=== PATIENT | female | born 1995 | race Hispanic/Latino ===

== ENCOUNTER 2019-05-01 10:47 | Emergency (ER) | payer OTHER ==
[2019-05-01] MEDS ORDERED: Metoclopramide HCl 10 MG/2 ML VIAL ONE (12:24)
[2019-05-01] MEDS ORDERED: diphenhydrAMINE 50 MG/ML VIAL ONE (12:24)
[2019-05-01 12:32] LABS: #Basophils 0.1 thou/uL (0.0-0.2); #Eosinphils 0.1 thou/uL (0.0-0.7); #Lymphocytes 2.3 thou/uL (1.20-3.40); #Monocytes 0.5 thou/uL (0.11-0.59); #Neutrophils 6.7 thou/uL (1.40-6.50); %Basophils 0.6 % (0.0-1.0); %Eosinophils 1.5 % (0.0-10.0); %Lymphocytes 23.5 % (21.0-51.0); %Neutrophils 69.4 % (42.0-75.0); Hemoglobin 13.6 g/dL (12.0-16.0); Mean Corpuscular Hemoglobin 31.9 pg (27.0-31.0); Mean Corpuscular Volume 99.7 fL (78.0-98.0); Mean Platelet Volume 9.4 fL (7.4-10.4); Platelet Count 331 thou/uL (130-400); Red Blood Cell (RBC) Count 4.25 mill/uL (4.20-5.40); White Blood Cell (WBC) Count 9.6 thou/uL (4.8-10.8)
[2019-05-01 12:34] LABS: BHCG - Serum Negative (NEGATIVE); Pregs Control Background? CLEAR/WHITE (CLR/WHITE); Pregs Control Bar Appear? YES (CONTROL BAR)
[2019-05-01 12:48] LABS: Anion Gap 14 mmol/L (10-20); BUN (Urea Nitrogen) 8 mg/dL (7.0-18.7); Calc. Creatinine Clearance 0 mL/min (70-130); Calcium 9.6 mg/dL (7.8-10.44); Carbon Dioxide 25 mmol/L (22-29); Chloride 105 mmol/L (98-107); Estimated GFR-MDRD Greater than 90; Glucose 93 mg/dL (70-105); Potassium 3.5 mmol/L (3.5-5.1); Sodium 140 mmol/L (136-145)
--- NOTE | 2019-05-01 14:03 | CT ---
EXAM: CT brain without contrast HISTORY: Headache COMPARISON: 11/25/2016 TECHNIQUE: Multiple contiguous axial images were obtained and a CT of the brain without contrast. FINDINGS: The brain is normal in morphology and attenuation without focal lesions or confluent areas of infarction. There is no evidence of hydrocephalus, intracranial hemorrhage, or extra-axial fluid collection. The calvarium and overlying soft tissues are unremarkable. The visualized paranasal sinuses and masto id air cells are well aerated. IMPRESSION: No evidence of acute intracranial abnormality
[2019-05-01] MEDS ORDERED: Ketorolac Tromethamine 30 MG/ML VIAL ONE (14:14)
[2019-05-01] MEDS ORDERED: Acetaminophen 500 MG TAB ONE (14:14)
== END 2019-05-01 15:05 | disposition home or self-care (01) ==
LOC: ERS 10:47
DX: R11.2 Nausea with vomiting, unspecified (principal); I12.0 Hypertensive chronic kidney disease with stage 5 chronic kidney disease or end stage renal disease; E11.22 Type 2 diabetes mellitus with diabetic chronic kidney disease; N18.6 End stage renal disease; E87.6 Hypokalemia; E78.5 Hyperlipidemia, unspecified; J45.909 Unspecified asthma, uncomplicated; Z99.2 Dependence on renal dialysis
CPT/HCPCS: 70450; 80048; 84703; 85025; 96365; 96375; J1200; J1885; J2765

== ENCOUNTER 2020-01-22 10:52 | Outpatient (CLI) | payer OTHER ==
--- NOTE | 2020-01-22 11:33 | ULT ---
EXAM: OB ultrasound COMPARISON: None HISTORY: female. Evaluate size, dates, and anatomy. TECHNIQUE: Multiplanar grayscale and color Doppler transabdominal sonographic images are obtained. FINDINGS: There is a single intrauterine gestation in transverse lie with the head to the maternal ri ght. Cardiac Doppler demonstrates heart tones with a heart rate of 150 beats per minute. The placenta is located posteriorly and borderline low lying. There is a normal amount of amn iotic fluid with an amniotic fluid index of 14.48 centimeters. The cervical length based on transabdominal imaging measures 5.3 centimeters. biometry measurements: BPD 5.03 cm -- 21 weeks 2 days HC 18.56 cm -- 21 weeks AC 15.31 cm -- 20 weeks 4 days FL 3.42 cm -- 20 weeks 6 days The estimated gestational age by ultrasound is 21 weeks with an CHELSEA on06/03/2020. Gestational age by t he last menstrual period is 20 weeks 4 days. The estimated weight by ultrasound is 369 g (13 ounces). This represents 51 percentile for feta l weight. A 4 chambered heart is visualized. The cerebellum, visualized portions of the spine, kidneys, u rinary bladder, and cord insertion demonstrate a normal sonographic appearance. A three-vessel cord is not visualized, but there is flow on either side of the urinary bladder sugges ting a three-vessel cord.. No anomalies are seen. IMPRESSION: 1. Borderline low-lying placenta. Follow-up evaluation in 4-6 weeks is recommended. 2. Single intrauterine gestation in transverse lie head to the maternal right with heart tones documented. Estimated gestational age by ultrasound is 21 weeks. 3. Estimated weight is 369 g (13 ounces). 4. Amniotic fluid index is 14.48 centimeters.
== END 2020-01-22 10:53 | disposition home or self-care (01) ==
LOC: BICULT 10:52
PROVIDERS: ATTEND Family Medicine
DX: O09.92 Supervision of high risk pregnancy, unspecified, second trimester (principal); O32.2XX0 Maternal care for transverse and oblique lie, not applicable or unspecified; Z3A.21 21 weeks gestation of pregnancy
CPT/HCPCS: 76805

== ENCOUNTER 2020-05-06 11:10 | Day surgery (SDC) | payer OTHER ==
[2020-05-06 11:38] VITALS: BMI 44.9
[2020-05-06] MEDS ORDERED: hydrALAZINE 20 MG/ML VIAL SLOW IVP PRN (13:17)
--- NOTE | 2020-05-06 14:00 | PRG ---
DATE OF SERVICE: 05/06/2020 PRIMARY OB: Dr. Kam Broussard. CHIEF COMPLAINT: Elevated blood pressure. HISTORY OF PRESENT ILLNESS: The patient is a 24-year-old G3, P2 female with an intrauterine at 35 weeks and 4 days, presenting to Labor and Delivery from clinic for an increased blood pressure in the office. She reports her blood pressure was 140 systolic and was brought for further evaluation. The patient denies abdominal pain, vision changes. She denies fever, cough, headache, chest pain, shortness of breath, nausea, vomiting, diarrhea, constipation, hip problems, knee problems, muscle weakness. She denies vaginal bleeding or leakage of fluid. She denies urinary urgency or frequency. PAST MEDICAL HISTORY: Negative. PAST SURGICAL HISTORY: Negative. ALLERGIES: NO KNOWN DRUG ALLERGIES. MEDICATIONS: vitamins. OB LABS: As recorded in [facility]; blood type is O positive. Rubella immune. Hep B negative. GC and chlamydia negative. RPR is negative. REVIEW OF SYSTEMS: Per HPI. PHYSICAL EXAMINATION: VITAL SIGNS: Initial blood pressure on arrival 127/83, heart rate of 78, temperature 98.5. Subsequent blood pressures over the following 2 hours have all been within normal limits. Her most recent is 127/82. GENERAL: She appears to be in no acute distress. She is alert and oriented, cooperative, and pleasant to interact with. HEAD: Normocephalic, atraumatic. LUNGS: Clear to auscultation bilaterally. HEART: Regular rate and rhythm. ABDOMEN: Gravid, soft, nontender. EXTREMITIES: Nontender, nonedematous. DTRs are negligible. : Has been deferred. heart tracing shows the fetus with a baseline in the 140s with moderate long-term variability, positive 15 x 15 accelerations, no decelerations. Tocometer showing some irritability, but not felt by the patient. ASSESSMENT AND PLAN: The patient is a 24-year-old female, who had some isolated elevated blood pressures in clinic, here for evaluation of PIH. The patient has no evidence of PH at this time. Based on blood pressures and symptoms, the patient is being discharged to home. She has instructions to follow up with her primary OB in 1 week as instructed by her clinic. Fetus has a category 1 tracing and reactive NST. Job ID: [id number]
== END 2020-05-06 13:24 | disposition home or self-care (01) ==
LOC: L&D/OP 11:10
PROVIDERS: ATTEND Family Medicine
DX: O99.89 Other specified diseases and conditions complicating pregnancy, childbirth and the puerperium (principal); R03.0 Elevated blood-pressure reading, without diagnosis of hypertension; Z3A.35 35 weeks gestation of pregnancy
CPT/HCPCS: 99282

== ENCOUNTER 2021-08-24 20:47 | Observation (INO) | payer OTHER ==
[2021-08-24] MEDS ORDERED: Ondansetron PF 4 MG/2 ML Vial ONE (21:15)
[2021-08-24] MEDS ORDERED: Morphine 4 MG/ML VIAL ONE ×2 (21:15→22:21)
[2021-08-24 21:22] LABS: Bilirubin Negative (Negative); Blood, Urine Negative (Negative); Clarity Turbid (Clear); Glucose, Urine (Dipstick) Normal (Negative); Ketone, Urine Negative (Negative); Leukocyte 500 Leu/uL (Negative); Mucous/LPF Rare LPF (<2+); Nitrite Negative (Negative); Protein, Urine (Dipstick) 10 mg/dL (Neg-Trace); RBC/HPF 0-3 HPF (0-3); Specific Gravity, Urine 1.022 (1.002-1.036); Urobilinogen Normal mg/dL (Less than 2); WBC/HPF Greater than 50 HPF (0-3); pH, Urine 7.5 (5.0-9.0)
[2021-08-24 21:32] LABS: Bacteria/HPF 1+ HPF (None Seen)
[2021-08-24 21:50] LABS: #Basophils 0.1 thou/uL (0.0-0.2); #Eosinphils 0.1 thou/uL (0.0-0.7); #Lymphocytes 2.3 thou/uL (1.20-3.40); #Monocytes 0.6 thou/uL (0.11-0.59); #Neutrophils 5.8 thou/uL (1.40-6.50); %Basophils 0.7 % (0.0-1.0); %Eosinophils 1.4 % (0.0-10.0); %Lymphocytes 25.5 % (21.0-51.0); %Monocytes 6.9 % (0.0-10.0); %Neutrophils 65.6 % (42.0-75.0); Hemoglobin 13.2 g/dL (12.0-16.0); Mean Corpuscular HGB CONC 32.9 g/dL (32.0-36.0); Mean Corpuscular Hemoglobin 32.1 pg (27.0-31.0); Mean Corpuscular Volume 97.6 fL (78.0-98.0); Mean Platelet Volume 9.6 fL (7.4-10.4); Platelet Count 302 thou/uL (130-400); RBC Distribution Width 11.6 % (11.5-14.5); Red Blood Cell (RBC) Count 4.12 mill/uL (4.20-5.40); White Blood Cell (WBC) Count 8.9 thou/uL (4.8-10.8)
[2021-08-24 21:52] LABS: BHCG - Serum Negative (NEGATIVE); Pregs Control Background? CLEAR/WHITE (CLR/WHITE); Pregs Control Bar Appear? YES (CONTROL BAR)
[2021-08-24 22:12] LABS: ALT (SGPT) 40 U/L (8-55); AST (SGOT) 26 U/L (5-34); Albumin 4.2 g/dL (3.5-5.0); Alkaline Phosphatase 77 U/L (40-110); Anion Gap 13 mmol/L (10-20); BUN (Urea Nitrogen) 12 mg/dL (7.0-18.7); Bilirubin, Total 0.2 mg/dL (0.2-1.2); Calc. Creatinine Clearance 0 mL/min (70-130); Calcium 9.7 mg/dL (7.8-10.44); Carbon Dioxide 27 mmol/L (22-29); Chloride 107 mmol/L (98-107); Globulin 3.5 g/dL (2.4-3.5); Glucose 93 mg/dL (70-105); Lipase 43 U/L (8-78); Potassium 4.7 mmol/L (3.5-5.1); Protein, Total 7.7 g/dL (6.0-8.3); Sodium 142 mmol/L (136-145)
[2021-08-24] MEDS ORDERED: cefTRIAXone\\ROCEPHIN 1 GM VIAL ONE (22:28)
[2021-08-25 00:16] VITALS: BMI 39.8
[2021-08-25] MEDS ORDERED: Morphine 4 MG/ML VIAL SLOW IVP PRN (00:22)
[2021-08-25] MEDS: Sodium Chloride 0.9% 1,000 ML IV SCH ×2 (00:29→09:48)
[2021-08-25 04:56] LABS: SARS-CoV-2 NAA Rapid Test Not Detected (NotDetected)
[2021-08-25] MEDS ORDERED: Ondansetron ODT 4 MG TAB PO PRN ×2 (08:07→15:30)
[2021-08-25] MEDS ORDERED: Ondansetron PF 4 MG/2 ML Vial IVP PRN ×2 (08:07→15:30)
[2021-08-25] MEDS ORDERED: Ondansetron ODT 8 MG TAB PO PRN (08:07)
[2021-08-25] MEDS ORDERED: Ondansetron ODT 8 MG TAB SL PRN (08:07)
[2021-08-25] MEDS ORDERED: Sodium Chloride 0.9% 1,000 ML IV SCH (08:15)
[2021-08-25] MEDS ORDERED: SUGAMMADEX SODIUM 200 MG/2 ML VIAL ONE (08:55)
[2021-08-25] MEDS ORDERED: Famotidine/PF 20 mg/2ml Vial ONE (08:55)
[2021-08-25] MEDS ORDERED: FLU VACC QS2021-22(6MOS UP)/PF 60 MCG/0.5 ML SYRINGE IM ONE (09:00)
[2021-08-25] MEDS ORDERED: Bupivacaine PF 0.5% 30 ML VIAL ONE (09:16)
[2021-08-25] MEDS ORDERED: Lidocaine 1% w/Epinephrine 1:100K 20 ML VIAL ONE (09:16)
[2021-08-25] MEDS ORDERED: Ketorolac Tromethamine 30 MG/ML VIAL IVP SCH (09:30)
[2021-08-25] MEDS ORDERED: Scopolamine 1.5 mg/72 hour Patch TD SCH (09:30)
[2021-08-25] MEDS ORDERED: Ondansetron PF 4 MG/2 ML Vial IVP SCH (09:30)
[2021-08-25] MEDS ORDERED: Sodium Chloride 0.9% 20 ML ONE (09:44)
[2021-08-25] MEDS ORDERED: Fentanyl 100 MCG/2 ML VIAL ONE ×3 (10:14→12:02)
[2021-08-25] MEDS ORDERED: Meperidine HCl/PF 25 MG/ML VIAL ONE (10:14)
[2021-08-25] MEDS ORDERED: PROPOFOL 200 MG/20 ML VIAL ONE (10:38)
[2021-08-25] MEDS ORDERED: Lidocaine 1% PF 5 ML VIAL ONE (10:38)
[2021-08-25] MEDS ORDERED: Dexamethasone 20 MG/5 ML VIAL ONE (10:38)
[2021-08-25] MEDS ORDERED: Ketorolac Tromethamine 30 MG/ML VIAL ONE (10:38)
[2021-08-25] MEDS ORDERED: Rocuronium Bromide 10 MG/ML (10ML VIAL) ONE (10:38)
[2021-08-25] MEDS ORDERED: Ondansetron PF 4 MG/2 ML Vial ONE (10:38)
[2021-08-25] MEDS ORDERED: Metoclopramide HCl 10 MG/2 ML VIAL ONE (10:38)
[2021-08-25] MEDS ORDERED: Ibuprofen 800 MG TAB PO PRN (10:40)
[2021-08-25] MEDS ORDERED: Acetaminophen 500 MG TAB PO PRN (10:40)
[2021-08-25] MEDS ORDERED: traMADol HCl 50 MG TAB PO PRN (10:40)
[2021-08-25] MEDS ORDERED: traMADol HCl 50 MG TAB PO SCH (10:45)
[2021-08-25] MEDS ORDERED: Acetaminophen 500 MG TAB PO SCH (10:45)
[2021-08-25] MEDS ORDERED: Ibuprofen 800 MG TAB PO SCH (10:45)
[2021-08-25] MEDS ORDERED: Promethazine HCl 25 MG/ML VIAL IM PRN (11:16)
[2021-08-25] MEDS ORDERED: Ondansetron HCl/PF 4 MG/2 ML Vial IVP PRN (11:16)
[2021-08-25] MEDS ORDERED: Promethazine HCl 25 MG/ML VIAL IVPB PRN (11:16)
[2021-08-25] MEDS ORDERED: Meperidine HCl/PF 25 MG/ML VIAL SLOW IVP PRN (11:16)
[2021-08-25] MEDS ORDERED: Ketorolac Tromethamine 30 MG/ML VIAL IVP PRN (15:30)
[2021-08-25 15:33] VITALS: TEMP 97.7
[2021-08-25 16:12] VITALS: BP 121/83
[2021-08-26] MEDS ORDERED: Prenatal Vitamin 1 TAB PO SCH (09:00)
== END 2021-08-25 16:47 | disposition home or self-care (01) ==
LOC: ERS 20:47 → SURG A 23:08
PROVIDERS: ADMIT Specialist; ATTEND Specialist
PROC: 0FT44ZZ Resection of Gallbladder, Percutaneous Endoscopic Approach (ICD-10-PCS; principal; 2021-08-25)
DX: K80.12 Calculus of gallbladder with acute and chronic cholecystitis without obstruction (principal); I10 Essential (primary) hypertension; E78.5 Hyperlipidemia, unspecified; E66.9 Obesity, unspecified; Z68.39 Body mass index [BMI] 39.0-39.9, adult; Z20.822 Contact with and (suspected) exposure to COVID-19
CPT/HCPCS: 76705; 80053; 81003; 81015; 83690; 84703; 85025; 88304; 96365; 96366; 96367; 96375; 96376; G0378; J0696; J1100; J1885; J1956; J2175; J2270; J2405; J2704; J2765; J3010; J7050; S0020; S0028; U0002

== ENCOUNTER 2022-05-06 08:28 | Emergency (ER) | payer OTHER | END 2022-05-06 09:00 | disposition home or self-care (01) | LOC: ERS 08:28 | DX: O98.513 Other viral diseases complicating pregnancy, third trimester (principal); U07.1 COVID-19; O10.913 Unspecified pre-existing hypertension complicating pregnancy, third trimester; O99.283 Endocrine, nutritional and metabolic diseases complicating pregnancy, third trimester; E78.5 Hyperlipidemia, unspecified; E78.00 Pure hypercholesterolemia, unspecified | CPT/HCPCS: 99283; U0003; U0005 ==

== ENCOUNTER 2023-11-10 09:16 | Emergency (ER) | payer OTHER ==
[2023-11-10] MEDS ORDERED: Ibuprofen 200 MG TAB ONE (09:33)
[2023-11-10 10:29] LABS: SARS-CoV-2 NAA Rapid Test Not Detected (NotDetected)
== END 2023-11-10 10:52 | disposition home or self-care (01) ==
LOC: ERS 09:16
DX: J10.1 Influenza due to other identified influenza virus with other respiratory manifestations (principal); I10 Essential (primary) hypertension
CPT/HCPCS: 87081; 87430; 99283

== ENCOUNTER 2024-04-07 11:25 | Emergency (ER) | payer OTHER | END 2024-04-07 14:21 | disposition home or self-care (01) | LOC: ERS 11:25 | DX: H16.001 Unspecified corneal ulcer, right eye (principal); I10 Essential (primary) hypertension; Z55.6 Problems related to health literacy | CPT/HCPCS: 99283 ==

== ENCOUNTER 2025-07-10 14:23 | Emergency (ER) | payer OTHER | END 2025-07-10 15:04 | disposition home or self-care (01) | LOC: ERS 14:23 | DX: S93.401A Sprain of unspecified ligament of right ankle, initial encounter (principal); I10 Essential (primary) hypertension; X50.9XXA Other and unspecified overexertion or strenuous movements or postures, initial encounter | CPT/HCPCS: 99283 ==